=== PATIENT | female | born 1975 | race African-American/Black ===

== ENCOUNTER → 2017-03-22 | Outpatient (CLI) | payer OTHER ==
[~2017-03-22] MED LIST: BACTRIM DS TABL1 TAB PO; GLUCOPHAGE500 MG PO; KEFLEX PO; LANTUS SOLOSTAR3 ML SUBQ; NO MEDICATIONS; NORCO1 TAB 10/3 PO; PIOGLITAZONE30 MG PO; VICODIN 5/500 T1 TAB PO
--- NOTE | ~2017-03-22 | US98 ---
[facility] A Service of [facility] RADIOLOGY TEXT RESULTS PATIENT: OCTAVIO GERARDO LOCATION: [facility] : 75 UNIT #: [id number] AGE: [address]: TRAVIS LARA SEX: F ORDER DR: [id number] [place], [place] [address] [id number] O MR#: [id number] Acc #: [id number] NAME: OCTAVIO GERARDO : 1975 SEX: F STUDY DATE/TIME: 03/22/2017 10:37 UNIT: [facility] ROOM: STUDY DESCRIPTION: US Pelvic Non-OB Complete Attending Physician: Stephanie Kang Ordering Physician: Stephanie Kang Primary Care Physician: Anastasia House M.D. MEDICAL IMAGING REPORT This report is preliminary unless electronic signature is present EXAM Pelvic ultrasound INDICATIONS Postcoital bleeding for the past 1.5 weeks. PROCEDURE Vergara-scale and Doppler imaging of the pelvis via transabdominal and transvaginal approach. COMPARISON None FINDINGS Uterus anteverted and measures 8.6 x 3.9 x 5.1 cm. There is a 2.4 cm simple cyst in the right ovary. Left ovary unremarkable. Endometrium measures 8 mm in thickness. There is a 2.7 cm hypoechoic region in the cervix. This does have some vascular flow. IMPRESSION 1. 2.7 cm hypoechoic region in the cervix is nonspecific but does have some vascular flow. It possibly could represent a cervical fibroid, but a true mass is not excluded. Correlate with Pap smear findings and physical examination findings. 2. There is a benign simple cyst in the right ovary. Endometrium is within normal limits. Dictated by... Parker Sylvester M.D. THIS IS AN ELECTRONICALLY VERIFIED REPORT Parker Sylvester M.D. at 03/22/2017 10:23 PM [facility] A Service [facility] RADIOLOGY TEXT RESULTS PATIENT: OCTAVIO GERARDO LOCATION: [facility] : 75 UNIT #: [id number] AGE: [address]: TRAVIS LARA SEX: F ORDER DR: MICHELE/betsey TD: 03/22/2017 21:24 JOB #: [id number] MEDICAL IMAGING REPORT Page 1 of 1 COPY
== END | disposition home or self-care (01) ==
LOC: CWCC 10:18
DX: N93.0 Postcoital and contact bleeding (principal); N88.9 Noninflammatory disorder of cervix uteri, unspecified; N83.201 Unspecified ovarian cyst, right side
CPT/HCPCS: 76830; 76856

== ENCOUNTER 2017-04-07 03:51 | Emergency (ER) | payer OTHER | END 2017-04-07 05:05 | disposition home or self-care (01) | LOC: CED 03:51 | DX: S39.012A Strain of muscle, fascia and tendon of lower back, initial encounter (principal); F17.200 Nicotine dependence, unspecified, uncomplicated; X58.XXXA Exposure to other specified factors, initial encounter | CPT/HCPCS: 82947; 96372; 99283; J1885 ==